=== PATIENT | male | born 1940 | race Caucasian/White ===

== ENCOUNTER → 2021-01-07 | Outpatient (CLI) | payer OTHER ==
--- NOTE | 2021-01-07 11:13 | 2DMMODE ---
[facility] [place] [address] 2 D/M-MODE ECHOCARDIOGRAM Name: YOSHI ZAFAR Room #: REG [facility].#: [id number] Admission: 01/07/21 Attend Phys: Physician not on staff Discharge: Date of : 42 Report #: [id number] THIS REPORT FOR: cc: Rui Gil Jeffrey J. DO Santiago, Patrick [facility] ~ APPROVED REPORT Study performed: 01/07/2021 09:46:18 EXAM: Comprehensive 2D, Doppler, and color-flow Echocardiogram Patient Location: Out-Patient Room #: 2 Status: routine BSA: 1.73 HR: 68 bpm BP: 132/82 mmHg Rhythm: NSR Other Information Study Quality: Good Indications Arrhythmia Hypertension/HDD 2D Dimensions RVDd: 36.43 mm IVSd: 9.53 (7-11mm) LVOT Diam: 17.97 (18-24mm) LVDd: 43.32 mm PWd: 10.15 (7-11mm) Ascending Ao: 32.08 (22-36mm) LVDs: 26.66 (25-40mm) Left Atrium: 39.26 (27-40mm) Aortic Root: 27.66 mm IVC: 17.00 mm Volumes Left Atrial Volume (Systole) Single Plane 4CH: 79.60 mL Single Plane 2CH: 45.70 mL LA ESV Index: 39.00 mL/m2 Aortic Valve AoV Peak Dez.: 1.47 m/s AO Peak Gr.: 8.63 mmHg LVOT Max P.17 mmHg LVOT Max V: 1.14 m/s [facility] [email or web address] [place] [address] 2 D/M-MODE ECHOCARDIOGRAM Name: YOSHI ZAFAR Room #: REG [facility]#: [id number] Admission: 01/07/21 Attend Phys: Physician not on s Discharge: Date of : 42 Report #: [id number] VICKEY Vmax: 1.96 cm2 Mitral Valve E/A Ratio: 1.0 MV Decel. Time: 221.71 ms MV E Max Dez.: 0.86 m/s MV A Dez.: 0.84 m/s MV PHT: 64.30 ms IVRT: 115.34 ms Pulmonary Valve PV Peak Dez.: 1.56 m/s PV Peak Gr.: 9.77 mmHg Pulmonary Vein P Vein S: 0.55 m/s P Vein A: 0.32 m/s P Vein D: 0.52 m/s P Vein A Dur.: 120.0 msec P Vein S/D Ratio: 1.06 Tricuspid Valve TR Peak Dez.: 2.78 m/s TR Peak Gr.: 30.91 mmHg PA Pressure: 36.00 mmHg Left Ventricle The left ventricle is normal size. There is normal LV segmental wall motion. There is normal left ventricular wall thickness. The left ventricular systolic function is normal. The left ventricular ejection fraction is within the normal range. LVEF is 60-65%. Grade II - pseudonormal filling dynamics. Right Ventricle The right ventricle is normal size. The right ventricular systolic function is normal. Atria Left atrium is dilated. The right atrium size is normal. Aortic Valve The aortic valve is normal in structure. No aortic regurgitation is present. There is no aortic valvular stenosis. Mitral Valve The mitral valve is normal in structure. Trace mitral regurgitation. No evidence of mitral valve stenosis. Tricuspid Valve [facility] [id number] [place] [address] 2 D/M-MODE ECHOCARDIOGRAM Name: YOSHI ZAFAR Room #: REG [facility]#: [id number] Admission: 01/07/21 Attend Phys: Physician not on s Discharge: Date of : 42 Report #: [id number] The tricuspid valve is normal in structure. There is trace to mild tricuspid regurgitation. Estimated PAP 36mmHg. There is mild pulmonary hypertension. Pulmonic Valve The pulmonary valve is normal in structure. There is no pulmonic valvular regurgitation. Great Vessels The aortic root is normal in size. IVC is normal in size and collapses >50% with inspiration. Pericardium There is no pericardial effusion. <Conclusion> Normal left ventricular size wall thickness Ejection fraction 60-65% Grade 2 diastolic dysfunction Normal right ventricular size/function Left atrium moderately dilated Color-flow Doppler study was performed of the aortic/mitral/tricuspid/pulmonary valve Normal aortic valve structure and function Trace mitral valve insufficiency Mild tricuspid valve insufficiency Pulmonary systolic pressure estimated 36 mmHg No pericardial effusion Normal aortic root size. <ELECTRONICALLY SIGNED> By: Wan Spicer MD, FACC 01/07/21 [id number] Wan Spicer MD, FACC /INF
== END ==
LOC: CV 10:30
DX: I11.9 Hypertensive heart disease without heart failure (principal); I47.9 Paroxysmal tachycardia, unspecified